=== PATIENT | male | born 1990 | race Caucasian/White ===

== ENCOUNTER 2018-06-10 07:16 | Emergency (ER) | payer SELFPAY ==
[~2018-06-10] VITALS: Ht 170.2 cm; Wt 61.2 kg
[~2018-06-10 07:16] MED LIST: DOXY100C2 PO; OXYB5TAB7 PO; OXYC5TAB95 PO; PHEN-318 PO
[2018-06-10] MEDS ORDERED: IV NORMAL SALINE 1000ML BAG 1,000 ML IV SCH (07:50)
[2018-06-10] MEDS ORDERED: KETOROLAC 30 MG/ML VIAL. IV ONE (08:00)
[2018-06-10] MEDS ORDERED: ONDANSETRON PF 4 MG/2 ML VIAL. IV ONE (08:00)
[2018-06-10 08:01] LABS: BILIRUBIN,URINE NEGATIVE (NEG); CLARITY,URINE CLEAR; COLOR,URINE YELLOW; NITRITE,URINE NEGATIVE (NEG); PH,URINE 6.5; PROTEIN,URINE NEGATIVE (NEG-TRACE); UROBILINOGEN,URINE 0.2 mg/dL (0.2 mg/dL)
--- NOTE | 2018-06-10 08:03 | PHYS DOC ---
Past Medical History Past Medical History: Kidney Stone Past Surgical History: Other Additional Past Surgical Histo: kidney stent placed, R chest skin graft Alcohol Use: Rarely Drug Use: Marijuana Adult General Chief Complaint Chief Complaint: FLANK PAIN HPI HPI Patient is a 28-year-old male with a past history of renal stones, who presents to the emergency department for evaluation of left flank pain, which began at 6: 45 AM this morning. He states the pain is an achy pain in his left flank which radiates towards his left groin and his left testicle, exactly the same as his prior kidney stones. He was here a month ago, and had a ureteropelvic junction stone, with stent placed, and his stone lasered. Notes from his recent hospitalization as well as a surgical procedure in order been reviewed. The patient states he removed the stent, upon the urologist instructions, about a week later. He states he has had some vomiting this morning since the pain began. He has had some blood clots in his urine, but has not had any fevers or chills. There are no alleviating, or exacerbating factors to his symptoms otherwise. Review of Systems Review of Systems Constitutional: Denies fever or chills [] Eyes: Denies change in visual acuity, redness, or eye pain [] HENT: Denies nasal congestion or sore throat [] Respiratory: Denies cough or shortness of breath [] Cardiovascular: The patient denies any shortness of breath, chest pain, palpitations, or orthopnea [] GI: Denies abdominal pain bloody stools or diarrhea [] : Denies dysuria or frequency. Reports hematuria and left flank pain.[] Musculoskeletal: Denies back pain or joint pain [] Integument: Denies rash or skin lesions [] Neurologic: Denies headache, focal weakness or sensory changes [] Endocrine: Denies polyuria or polydipsia [] All other systems were reviewed and found to be within normal limits, except as documented in this note. Current Medications Current Medications Current Medications Medications (Trade) Dose Ordered Sig/Vannesa Start Time Stop Time Status Last Admin Dose Admin Ketorolac Tromethamine (Toradol 30mg Vial) 30 mg 1X ONCE 06/10/18 08:00 06/10/18 08:25 DC 06/10/18 08:31 30 MG Morphine Sulfate (Morphine Sulfate) 4 mg PRN Q15MIN PRN 06/10/18 08:00 06/11/18 07:59 06/10/18 09:10 4 MG Ondansetron HCl (Zofran) 4 mg 1X ONCE 06/10/18 08:00 06/10/18 08:03 DC 06/10/18 08:32 4 MG Sodium Chloride 1,000 ml @ 1,000 mls/hr Q1H 06/10/18 07:50 06/10/18 08:49 DC 06/10/18 08:32 1,000 MLS/HR Allergies Allergies Allergies Coded Allergies Type Severity Reaction Last Updated Verified cyclobenzaprine Allergy Severe Anaphylaxis 05/06/18 Yes naproxen Allergy Severe Anaphylaxis 05/06/18 Yes tramadol Allergy Severe Anaphylaxis 05/06/18 Yes Physical Exam Physical Exam PHYSICAL EXAM: CONSTITUTIONAL: Well developed, well nourished HEAD: normocephalic, atraumatic EENT: PERRL, EOMI. Conjunctivae normal color, sclerae non-icteric; moist mucous membranes. NECK: Supple, non-tender; no meningismus. LUNGS: Lungs CTA, breathing even and unlabored. Normal air movement. HEART: Regular rate and rhythm, no murmur CHEST: No deformity; non-tender ABDOMEN: The abdomen is soft, and non-tender, no masses or bruits. There is no reproducible flank tenderness to palpation on abdominal palpation or evaluation. EXTREM: Normal ROM; no deformity, no calf tenderness. Normal pulses palpable in all extremities. There is no pedal edema. SKIN: No rash; no diaphoresis NEURO: Alert; normal speech and cognition; CN's grossly intact; strength grossly intact without focal deficit. BACK: There is mild left-sided CVA tenderness to palpation. There is no vertebral tenderness to palpation to the thoracic or lumbar spine. GENITOURINARY: Normal external genitalia. There is no testicular tenderness to palpation or inguinal masses. Current Patient Data Vital Signs Vital Signs Date Time Temp Pulse Resp B/P (MAP) Pulse Ox O2 Delivery O2 Flow Rate FiO2 06/10/18 09:10 18 99 Room Air 06/10/18 08:30 65 116/73 (87) 06/10/18 07:55 98.4 98.4 Lab Values Laboratory Tests Test 06/10/18 07:45 06/10/18 08:10 Urine Collection Type Unknown Urine Color Yellow Urine Clarity Clear Urine pH 6.5 Urine Specific [place] <=1.005 Urine Protein Negative mg/dL (NEG-TRACE) Urine Glucose (UA) Negative mg/dL (NEG) Urine Ketones (Stick) Negative mg/dL (NEG) Urine Blood Negative (NEG) Urine Nitrite Negative (NEG) Urine Bilirubin Negative (NEG) Urine Urobilinogen Dipstick 0.2 mg/dL (0.2 mg/dL) Urine Leukocyte Esterase Negative (NEG) Urine RBC 0 /HPF (0-2) Urine WBC 0 /HPF (0-4) Urine Bacteria 0 /HPF (0-FEW) White Blood Count 11.3 x10^3/uL (4.0-11.0) H Red Blood Count 4.46 x10^6/uL (4.30-5.70) Hemoglobin 14.3 g/dL (13.0-17.5) Hematocrit 41.8 % (39.0-53.0) Mean Corpuscular Volume 94 fL (79-100) Mean Corpuscular Hemoglobin 32 pg (25-35) Mean Corpuscular Hemoglobin Concent 34 g/dL (31-37) Red Cell Distribution Width 13.8 % (11.5-14.5) Platelet Count 239 x10^3/uL (140-400) Neutrophils (%) (Auto) 69 % (31-73) Lymphocytes (%) (Auto) 21 % (24-48) L Monocytes (%) (Auto) 6 % (0-9) Eosinophils (%) (Auto) 2 % (0-3) Basophils (%) (Auto) 1 % (0-3) Neutrophils # (Auto) 7.8 x10^3uL (1.8-7.7) H Lymphocytes # (Auto) 2.4 x10^3/uL (1.0-4.8) Monocytes # (Auto) 0.7 x10^3/uL (0.0-1.1) Eosinophils # (Auto) 0.3 x10^3/uL (0.0-0.7) Basophils # (Auto) 0.1 x10^3/uL (0.0-0.2) Sodium Level 144 mmol/L (136-145) Potassium Level 4.1 mmol/L (3.5-5.1) Chloride Level 112 mmol/L (98-107) H Carbon Dioxide Level 26 mmol/L (21-32) Anion Gap 6 (6-14) Blood Urea Nitrogen 8 mg/dL (8-26) Creatinine 1.0 mg/dL (0.7-1.3) Estimated GFR (Cockcroft-Gault) 90.3 BUN/Creatinine Ratio 8 (6-20) Glucose Level 83 mg/dL (70-99) Calcium Level 8.8 mg/dL (8.5-10.1) Total Bilirubin 0.2 mg/dL (0.2-1.0) Aspartate Amino Transferase (AST) 17 U/L (15-37) Alanine Aminotransferase (ALT) 35 U/L (16-63) Alkaline Phosphatase 96 U/L (46-116) Total Protein 7.0 g/dL (6.4-8.2) Albumin 4.0 g/dL (3.4-5.0) Albumin/Globulin Ratio 1.3 (1.0-1.7) Lipase 272 U/L (73-393) Laboratory Tests 06/10/18 08:10 Laboratory Tests 06/10/18 08:10 EKG EKG [] Radiology/Procedures Radiology/Procedures [PROCEDURE: CT ABDOMEN PELVIS WO CONTRAST CT scan of the abdomen and pelvis without contrast 06/10/2018 CLINICAL HISTORY: Left flank pain. TECHNIQUE: Unenhanced, contiguous, 2 mm axial sections were obtained through the abdomen and pelvis. One or more of the following individualized dose reduction techniques were utilized for this study: 1. Automated exposure control. 2. Adjustment of the mA and/or kV according to patient size. 3. Use of iterative reconstruction technique. FINDINGS: Comparison study is dated 05/06/2018. Images through the lung bases are within normal limits. The liver, spleen, pancreas, and adrenal glands are within normal limits. No renal or ureteral calculus is seen. There is no evidence of obstruction of either collecting system. The left UPJ calculus seen on the previous examination has been passed. The abdominal aorta tapers normally. The gallbladder is contracted. No free fluid or free air is seen within the abdomen. There is no evidence of bowel obstruction. Air and stool is seen throughout the colon. The appendix is well-visualized and is within normal limits. Images through the pelvis demonstrate the urinary bladder distended with urine. No free fluid is seen. The osseous structures are unchanged. IMPRESSION: No acute abnormality is seen.] Course & Med Decision Making Course & Med Decision Making Pertinent Labs and Imaging studies reviewed. (See chart for details) [9:10 AM: The patient's condition remained stable. I discussed test results with the patient, the unclear etiology of his symptoms, the need for close outpatient follow-up with a primary care provider and urologist, and return precautions.] Dragon Disclaimer Dragon Disclaimer This electronic medical record was generated, in whole or in part, using a voice recognition dictation system. Departure Departure Impression: Primary Impression: Flank pain Disposition: HOME, SELF-CARE Condition: STABLE Referrals: ARMEN GÓMEZ MD Patient Instructions: Back Pain, Adult, Flank Pain Additional Instructions: Ibuprofen 400-600 mg every 6 hours may help improve your symptoms. Applying a heating pad to the affected area may help improve your symptoms. The prescribed medications may cause drowsiness-use caution while taking. Scripts Tizanidine Hcl (ZANAFLEX) 4 Mg Capsule 1 CAP PO TID, #20 CAP Prov: LEONIDES HENDRICKSON MD 06/10/18 Diclofenac Sodium (DICLOFENAC SODIUM) 50 Mg Tablet. 1 TAB PO BID, #20 TAB 0 Refills Prov: LEONIDES HENDRICKSON MD 06/10/18 LEONIDES HENDRICKSON MD Jun 10, 2018 08:03
[2018-06-10 08:16] LABS: BASO # 0.1 x10^3/uL (0.0-0.2); BASO % 1 % (0-3); EOS # 0.3 x10^3/uL (0.0-0.7); EOS % 2 % (0-3); HEMATOCRIT 41.8 % (39.0-53.0); HEMOGLOBIN 14.3 g/dL (13.0-17.5); LYMPH # 2.4 x10^3/uL (1.0-4.8); LYMPH % 21 % (24-48); MEAN CORPUSCULAR HEMOGLOBIN 32 pg (25-35); MEAN CORPUSCULAR HGB CONC 34 g/dL (31-37); MEAN CORPUSCULAR VOLUME 94 fL (79-100); MONO # 0.7 x10^3/uL (0.0-1.1); MONO % 6 % (0-9); NEUT # 7.8 x10^3uL (1.8-7.7); NEUT % 69 % (31-73); PLATELET COUNT 239 x10^3/uL (140-400); RED BLOOD COUNT 4.46 x10^6/uL (4.30-5.70); RED CELL DISTRIBUTION WIDTH 13.8 % (11.5-14.5); WHITE BLOOD COUNT 11.3 x10^3/uL (4.0-11.0)
[2018-06-10 08:19] LABS: BACTERIA,URINE 0 /HPF (0-FEW); RBC,URINE 0 /HPF (0-2); WBC,URINE 0 /HPF (0-4)
[2018-06-10] MEDS: MORPHINE SULFATE 4 MG/ML VIAL. IV/SQ PRN ×2 (08:31→09:10)
[2018-06-10 08:33] LABS: GFR 90.3
[2018-06-10 08:39] LABS: ALBUMIN/GLOBULIN RATIO 1.3 (1.0-1.7); TOTAL BILIRUBIN 0.2 mg/dL (0.2-1.0)
[2018-06-10 08:43] LABS: CALCIUM 8.8 mg/dL (8.5-10.1); POTASSIUM 4.1 mmol/L (3.5-5.1)
--- NOTE | 2018-06-10 09:00 | RAD ---
CT scan of the abdomen and pelvis without contrast 06/10/2018 CLINICAL HISTORY: Left flank pain. TECHNIQUE: Unenhanced, contiguous, 2 mm axial sections were obtained through the abdomen and pelvis. One or more of the following individualized dose reduction techniques were utilized for this study: 1. Automated exposure control. 2. Adjustment of the mA and/or kV according to patient size. 3. Use of iterative reconstruction technique. FINDINGS: Comparison study is dated 05/06/2018. Images through the lung bases are within normal limits. The liver, spleen, pancreas, and adrenal glands are within normal limits. No renal or ureteral calculus is seen. There is no evidence of obstruction of either collecting system. The left UPJ calculus seen on the previous examination has been passed. The abdominal aorta tapers normally. The gallbladder is contracted. No free fluid or free air is seen within the abdomen. There is no evidence of bowel obstruction. Air and stool is seen throughout the colon. The appendix is well-visualized and is within normal limits. Images through the pelvis demonstrate the urinary bladder distended with urine. No free fluid is seen. The osseous structures are unchanged. IMPRESSION: No acute abnormality is seen. Electronically signed by: Arben Avila MD (06/10/2018 8:56 AM) [id number]
[2018-06-10 09:15] VITALS: BP 107/80
[2018-06-10] MEDS ORDERED: DICL50TA4 PO (09:16)
[2018-06-10] MEDS ORDERED: TIZA4CAP3 PO (09:16)
== END 2018-06-10 09:35 | disposition home or self-care (01) ==
LOC: ER 07:16
DX: R10.9 Unspecified abdominal pain (principal); R31.9 Hematuria, unspecified; Z87.442 Personal history of urinary calculi; Z88.5 Allergy status to narcotic agent; Z88.8 Allergy status to other drugs, medicaments and biological substances
CPT/HCPCS: 36415; 74176; 80053; 81001; 83690; 85025; 96374; 96375; 96376; 99285; J1885; J2270; J2405; J7030

== ENCOUNTER 2018-08-11 11:36 | Emergency (ER) | payer SELFPAY ==
[~2018-08-11] VITALS: Ht 170.2 cm; Wt 61.2 kg
[~2018-08-11 11:36] MED LIST changes: +DICL50TA4 PO; +OXYC5TAB4 PO; -OXYC5TAB95 PO; +TIZA4CAP3 PO
[2018-08-11 11:53] VITALS: BP 91/69
[2018-08-11] MEDS ORDERED: HYDR-3164 PO (12:38)
[2018-08-11] MEDS ORDERED: SULF1TAB24 PO (12:38)
--- NOTE | 2018-08-11 12:38 | PHYS DOC ---
Past Medical History Past Medical History: No Pertinent History, Kidney Stone Past Surgical History: Other Additional Past Surgical Histo: kidney stent placed, R chest skin graft Alcohol Use: Rarely Drug Use: Marijuana Adult General Chief Complaint Chief Complaint: ABSCESS HPI HPI Patient is a 28 year old male who presents with an abscess to his lower abdomen that has been increasing in size over the past 3-4 days. He states that he is picked at it but is unable to get it to open and drain. He states that it is now very painful. He denies fever, nausea or vomiting. Review of Systems Review of Systems Constitutional: Denies fever or chills [] Eyes: Denies change in visual acuity, redness, or eye pain [] HENT: Denies nasal congestion or sore throat [] Respiratory: Denies cough or shortness of breath [] Cardiovascular: No additional information not addressed in HPI [] GI: Denies abdominal pain, nausea, vomiting, bloody stools or diarrhea [] : Denies dysuria or hematuria [] Musculoskeletal: Denies back pain or joint pain [] Integument: See history of present illness Neurologic: Denies headache, focal weakness or sensory changes [] Endocrine: Denies polyuria or polydipsia [] All other systems were reviewed and found to be within normal limits, except as documented in this note. Current Medications Current Medications Current Medications Medications (Trade) Dose Ordered Sig/Vannesa Start Time Stop Time Status Last Admin Dose Admin Acetaminophen/ Hydrocodone Bitart (Lortab 5/325) 2 tab 1X ONCE 08/11/18 12:45 08/11/18 12:46 DC 08/11/18 12:56 2 TAB Allergies Allergies Allergies Coded Allergies Type Severity Reaction Last Updated Verified cyclobenzaprine Allergy Severe Anaphylaxis 05/06/18 Yes naproxen Allergy Severe Anaphylaxis 05/06/18 Yes tramadol Allergy Severe Anaphylaxis 08/11/18 Yes Physical Exam Physical Exam Constitutional: Well developed, well nourished, no acute distress, non-toxic appearance. [] HENT: Normocephalic, atraumatic, bilateral external ears normal, oropharynx moist, no oral exudates, nose normal. [] Eyes: PERRLA, EOMI, conjunctiva normal, no discharge. [] Neck: Normal range of motion, no tenderness, supple, no stridor. [] Cardiovascular:Heart rate regular rhythm, no murmur [] Lungs & Thorax: Bilateral breath sounds clear to auscultation [] Abdomen: Bowel sounds normal, soft, no tenderness, no masses, no pulsatile masses. [] Skin: 3 cm in diameter abscess to the lower right abdomen that has scabbing noted to the surface with induration and fluctuance noted Back: No tenderness, no CVA tenderness. [] Extremities: No tenderness, no cyanosis, no clubbing, ROM intact, no edema. [] Neurologic: Alert and oriented X 3, normal motor function, normal sensory function, no focal deficits noted. [] Psychologic: Affect normal, judgement normal, mood normal. [] Current Patient Data Vital Signs Vital Signs Date Time Temp Pulse Resp B/P (MAP) Pulse Ox O2 Delivery O2 Flow Rate FiO2 08/11/18 12:56 16 95 Room Air 08/11/18 11:53 97.4 90 91/69 (76) 97.4 EKG EKG [] Radiology/Procedures Radiology/Procedures []Abscess Incision and Drainage with irrigation by me: Location: Lower abdomen Technique: The abscess was opened with an 11 blade and thick purulent drainage was released. Approximately 7 mls of drainage was produced Packing: None Complications: Neurovascularly intact post procedure 48 hour wound check. Scar minimization instructions given. Course & Med Decision Making Course & Med Decision Making Pertinent Labs and Imaging studies reviewed. (See chart for details) [] Dragon Disclaimer Dragon Disclaimer This electronic medical record was generated, in whole or in part, using a voice recognition dictation system. Departure Departure Impression: Primary Impression: Abscess Disposition: 01 HOME, SELF-CARE Condition: STABLE Referrals: NO PCP (PCP) Patient Instructions: Abscess Additional Instructions: Take medications as directed. Do not drive or operate heavy machinery taking pain medication. Follow-up with your PCP in 4 days for recheck if not improving or return to the emergency department if worsening. Scripts Hydrocodone/Apap 5-325 (NORCO 5-325 TABLET) 1 Each Tablet 1 TAB PO PRN Q6HRS PRN for PAIN, #10 TAB 0 Refills Prov: SERGIO BOLTON APRN 08/11/18 Sulfamethoxazole/Trimethoprim (BACTRIM DS TABLET) 1 Each Tablet 1 TAB PO BID for abscess, #20 TAB Prov: SERGIO BOLTON APRN 08/11/18 Attending Signature Attending Signature I have reviewed the PA/ROASTER OPERATOR's note and plan of care. I was available for consultation as needed during the patient's visit in the emergency department. I agree with the clinical impression, plan, and disposition. SERGIO BOLTON APRN Aug 11, 2018 12:38 ADAMARIS DOMÍNGUEZ DO Aug 12, 2018 13:54
[2018-08-11] MEDS ORDERED: HYDROcodone/APAP 5/325MG 1 TAB TABLET PO ONE (12:45)
== END 2018-08-11 13:00 | disposition home or self-care (01) ==
LOC: ER 11:36
DX: L02.211 Cutaneous abscess of abdominal wall (principal); Z87.442 Personal history of urinary calculi; Z88.5 Allergy status to narcotic agent; Z88.8 Allergy status to other drugs, medicaments and biological substances
CPT/HCPCS: 10060; 99283

== ENCOUNTER 2019-08-22 22:12 | Emergency (ER) | payer MEDICAID ==
[~2019-08-22] VITALS: Ht 167.6 cm; Wt 65.8 kg
[~2019-08-22 22:12] MED LIST changes: +HYDR-3164 PO; +OXYB5TAB10 PO; -OXYB5TAB7 PO; +SULF1TAB24 PO
--- NOTE | 2019-08-22 22:47 | PHYS DOC ---
Past Medical History Past Medical History: No Pertinent History, Kidney Stone Past Surgical History: Other Additional Past Surgical Histo: kidney stent placed, R chest skin graft Alcohol Use: Rarely Drug Use: Marijuana Adult General Chief Complaint Chief Complaint: HEAD INJURY/TRAUMA HPI HPI Patient is a 29-year-old otherwise healthy male who fell hit his head on the ice a couple days ago. He's had severe headaches dizziness and lethargy and difficulty walking since that time. He states now his headache is so severe that he has some nausea. He denies any neck pain or lateralizing neurologic weakness.[] Review of Systems Review of Systems Constitutional: Denies fever or chills [] Eyes: Denies change in visual acuity, redness, or eye pain [] HENT: Denies nasal congestion or sore throat [] Respiratory: Denies cough or shortness of breath [] Cardiovascular: No additional information not addressed in HPI [] GI: Denies abdominal pain, nausea, vomiting, bloody stools or diarrhea [] : Denies dysuria or hematuria [] Musculoskeletal: Denies back pain or joint pain [] Integument: Denies rash or skin lesions [] Neurologic: Per history of present illness[] Endocrine: Denies polyuria or polydipsia [] All other systems were reviewed and found to be within normal limits, except as documented in this note. Current Medications Current Medications Current Medications Medications (Trade) Dose Ordered Sig/Vannesa Start Time Stop Time Status Last Admin Dose Admin Diphenhydramine HCl (Benadryl) 25 mg 1X ONCE 08/22/19 23:00 08/22/19 23:01 Ketorolac Tromethamine (Toradol 30mg Vial) 30 mg 1X ONCE 08/22/19 23:00 08/22/19 23:01 Metoclopramide HCl (Reglan Vial) 10 mg 1X ONCE 08/22/19 23:00 08/22/19 23:01 Sodium Chloride 1,000 ml @ 1,000 mls/hr 1X ONCE 08/22/19 23:00 08/22/19 23:59 Allergies Allergies Allergies Coded Allergies Type Severity Reaction Last Updated Verified cyclobenzaprine Allergy Severe Anaphylaxis 05/06/18 Yes naproxen Allergy Severe Anaphylaxis 05/06/18 Yes tramadol Allergy Severe Anaphylaxis 08/11/18 Yes Physical Exam Physical Exam Constitutional: Well developed, well nourished, mild to moderate distress, non- toxic appearance. [] HENT: Right forehead with small hematoma tender to palp no obvious crepitus. [] Eyes: PERRLA, EOMI, conjunctiva normal, no discharge. [] Neck: Normal range of motion, no tenderness, supple, no stridor. [] Cardiovascular:Heart rate regular rhythm, no murmur [] Lungs & Thorax: Bilateral breath sounds clear to auscultation [] Abdomen: Bowel sounds normal, soft, no tenderness, no masses, no pulsatile masses. [] Skin: Warm, dry, no erythema, no rash. [] Back: No tenderness, no CVA tenderness. [] Extremities: No tenderness, no cyanosis, no clubbing, ROM intact, no edema. [] Neurologic: Alert and oriented X 3, normal motor function, normal sensory function, no focal deficits noted. [] Psychologic: Anxious[] EKG EKG [] Radiology/Procedures Radiology/Procedures []REASON: head trauma, LOC PROCEDURE: CT HEAD WO CONTRAST CT head without contrast 08/22/2019. Reason for exam: Headache. Head injury. Noncontrast images were performed. Exposure: One or more of the following individualized dose reduction techniques were utilized for this examination: 1. Automated exposure control 2. Adjustment of the mA and/or kV according to patient size 3. Use of iterative reconstruction technique. FINDINGS: There is no apparent intracranial hemorrhage or abnormal extra-axial fluid collection. No area of abnormal density is seen in the brain. The ventricles and basilar cisterns are normally positioned. Bone windows show no apparent fracture of the skull or abnormal sinus or mastoid opacification. IMPRESSION: No apparent acute abnormality. Course & Med Decision Making Course & Med Decision Making Pertinent Labs and Imaging studies reviewed. (See chart for details) [ED course: Evaluation reveals a 29-year-old male with a head injury 2 days ago who had some severe headache dizziness secondary to the fall. CT scan was performed because there was some question of a brief loss of consciousness and then was severe progressive symptoms I felt it was warranted. Patient was given IV fluids Toradol Reglan and Benadryl with complete resolution of his symptoms.] Dragon Disclaimer Dragon Disclaimer This electronic medical record was generated, in whole or in part, using a voice recognition dictation system. Departure Departure Impression: Primary Impression: Closed head injury Additional Impression: Migraine Disposition: 01 HOME, SELF-CARE Condition: IMPROVED Referrals: NO PCP (PCP) Patient Instructions: Head Injury, Adult, Migraine Headache Additional Instructions: Return to the emergency department with any new or concerning symptoms Scripts Naproxen (NAPROXEN) 500 Mg Tablet 1 TAB PO BID PRN for PAIN, #30 TAB 1 Refill Prov: JHONY MUSA DO 08/22/19 Problem Qualifiers Primary Impression: Closed head injury Encounter type: initial encounter Qualified Codes: S09.90XA - Unspecified injury of head, initial encounter Additional Impression: Migraine Migraine type: without aura Status migrainosus presence: without status migrainosus Intractability: not intractable Qualified Codes: G43.009 - Migraine without aura, not intractable, without status migrainosus JHONY MUSA DO Aug 22, 2019 22:47
--- NOTE | 2019-08-22 22:56 | RAD ---
CT head without contrast 08/22/2019. Reason for exam: Headache. Head injury. Noncontrast images were performed. Exposure: One or more of the following individualized dose reduction techniques were utilized for this examination: 1. Automated exposure control 2. Adjustment of the mA and/or kV according to patient size 3. Use of iterative reconstruction technique. FINDINGS: There is no apparent intracranial hemorrhage or abnormal extra-axial fluid collection. No area of abnormal density is seen in the brain. The ventricles and basilar cisterns are normally positioned. Bone windows show no apparent fracture of the skull or abnormal sinus or mastoid opacification. IMPRESSION: No apparent acute abnormality. Electronically signed by: Sanjeev Pacheco Jr., MD (08/22/2019 10:53 PM) [id number]
[2019-08-22] MEDS: IV NORMAL SALINE 1000ML BAG 1,000 ML IV ONE (22:58)
[2019-08-22] MEDS: KETOROLAC 30 MG/ML VIAL. IV ONE (22:59)
[2019-08-22] MEDS: METOCLOPRAMIDE HCL 10 MG/2 ML VIAL. IV ONE (22:59)
[2019-08-22] MEDS: diphenhydrAMINE 50 MG/ML VIAL IVP ONE (22:59)
[2019-08-22] MEDS ORDERED: NAPR-514 PO (22:59)
[2019-08-22 23:53] VITALS: BP 117/63
== END 2019-08-23 00:09 | disposition home or self-care (01) ==
LOC: ER 22:12
DX: S00.83XA Contusion of other part of head, initial encounter (principal); G43.909 Migraine, unspecified, not intractable, without status migrainosus; R42 Dizziness and giddiness; Z88.5 Allergy status to narcotic agent; Z88.6 Allergy status to analgesic agent; Z88.8 Allergy status to other drugs, medicaments and biological substances; W18.09XA Striking against other object with subsequent fall, initial encounter; Y93.89 Activity, other specified; Y92.89 Other specified places as the place of occurrence of the external cause; Y99.8 Other external cause status
CPT/HCPCS: 70450; 96361; 96374; 96375; 99284; J1200; J1885; J2765; J7030

== ENCOUNTER 2019-12-07 16:28 | Emergency (ER) | payer MEDICAID ==
[~2019-12-07 16:28] MED LIST changes: +NAPR-514 PO
== END 2019-12-07 16:56 | disposition left against medical advice (07) ==
LOC: ER 16:28
DX: T65.91XA Toxic effect of unspecified substance, accidental (unintentional), initial encounter (principal); Y92.89 Other specified places as the place of occurrence of the external cause

== ENCOUNTER 2020-05-23 16:58 | Emergency (ER) | payer MEDICAID ==
[~2020-05-23] VITALS: Ht 170.2 cm; Wt 71.3 kg
[2020-05-23] MEDS ORDERED: fentaNYL PF VIAL 100 MCG/2 ML VIAL IVP ONE (17:45)
--- NOTE | 2020-05-23 18:24 | PHYS DOC ---
Past Medical History Past Medical History: Kidney Stone Past Surgical History: Other Additional Past Surgical Histo: kidney stent placed, R chest skin graft, dental surgery Smoking Status: Current Every Day Smoker Additional Information: 4-5 cigarettes daily Alcohol Use: None Drug Use: Marijuana General Adult EDM: Chief Complaint: ANKLE PROBLEM HPI: HPI: Patient is a 30 year old male who presents with was working on his sister's car today when the car morris fell out from her knee the car and the car hit his left ankle. There is 3+ swelling and bruising to the whole malleus itself. More so on the malleus. Patient rates his pain a 10 out of 10 and states it sharp and throbbing. Skin is pink warm and dry. Pedal pulse strong present. Cap refill less than 2 seconds. Patient can wiggle toes but he cannot rotate at the ankle. History of smoking, right chest skin graft, dental surgery, kidney stone with stent. Review of Systems: Review of Systems: Constitutional: Denies fever or chills. [] Eyes: Denies change in visual acuity. [] HENT: Denies nasal congestion or sore throat. [] Respiratory: Denies cough or shortness of breath. [] Cardiovascular: Denies chest pain. Left ankle 3+ edema. [] GI: Denies abdominal pain, nausea, vomiting, bloody stools or diarrhea. [] : Denies dysuria. [] Musculoskeletal: Denies back pain. Left ankle joint pain. [] Integument: Denies rash. Ankle swelling and bruising. [] Neurologic: Denies headache, focal weakness or sensory changes. [] Endocrine: Denies polyuria or polydipsia. [] Lymphatic: Denies swollen glands. [] Psychiatric: Denies depression or anxiety. [] Heart Score: Risk Factors: Risk Factors: DM, Current or recent (<one month) smoker, HTN, HLP, family history of CAD, obesity. Risk Scores: Score 0 - 3: 2.5% MACE over next 6 weeks - Discharge Home Score 4 - 6: 20.3% MACE over next 6 weeks - Admit for Clinical Observation Score 7 - 10: 72.7% MACE over next 6 weeks - Early Invasive Strategies Current Medications: Current Medications Medications (Trade) Dose Ordered Sig/Vannesa Start Time Stop Time Status Last Admin Dose Admin Fentanyl Citrate (Fentanyl 2ml Vial) 50 mcg 1X ONCE 05/23/20 17:45 05/23/20 17:46 DC 05/23/20 17:48 50 MCG Morphine Sulfate (Morphine Sulfate) 4 mg 1X ONCE 05/23/20 18:30 05/23/20 18:31 Allergies: Allergies: Allergies Coded Allergies Type Severity Reaction Last Updated Verified cyclobenzaprine Allergy Severe Anaphylaxis 05/23/20 Yes naproxen Allergy Severe Anaphylaxis 05/23/20 Yes tramadol Allergy Severe Anaphylaxis 05/23/20 Yes Physical Exam: PE: Constitutional: Well developed, well nourished, no acute distress, non-toxic appearance. [] HENT: Normocephalic, atraumatic, bilateral external ears normal, oropharynx moist, no oral exudates, nose normal. [] Eyes: PERRLA, EOMI, conjunctiva normal, no discharge. [] Neck: Normal range of motion, no tenderness, supple, no stridor. [] Cardiovascular:Heart rate regular rhythm, no murmur [] Lungs & Thorax: Bilateral breath sounds clear to auscultation [] Abdomen: Bowel sounds normal, soft, no tenderness, no masses, no pulsatile masses. [] Skin: Warm, dry, no erythema, no rash. Left ankle bruising. [] Back: No tenderness, no CVA tenderness. [] Extremities: Left medial, dorsal, lateral tenderness, no cyanosis, no clubbing, left ankle ROM not intact, 3+ edema. [] Neurologic: Alert and oriented X 3, normal motor function, normal sensory function, no focal deficits noted. [] Psychologic: Affect normal, judgement normal, mood normal. [] Current Patient Data: Vital Signs: Vital Signs Date Time Temp Pulse Resp B/P (MAP) Pulse Ox O2 Delivery O2 Flow Rate FiO2 05/23/20 17:48 98 Room Air 05/23/20 17:27 98.7 117 20 120/66 (84) 98.0 98.7 EKG: EK and read by Dr Taylor sinus rhythm and no STEMI. Radiology/Procedures: Radiology/Procedures: [] Impression: [facility] [address] [place] [address] IMAGING REPORT Signed PATIENT: CALEB JAMES ACCOUNT: [id number] : 1990 LOCATION: ER AGE: 30 SEX: M EXAM STATUS: REG ER ORD. PHYSICIAN: NON,STAFF REASON: Car fell off morris onto ankle/foot PROCEDURE: ANKLE LEFT 3V Left ankle x-rays 3 views HISTORY: Trauma, left ankle and foot pain. FINDINGS: Acute traumatic comminuted fracture of the calcaneus disrupting the tuberosity with cortical offset of 2 mm at the region of the Achilles tendon insertion, fracture extends into the talocalcaneal joint involving the facets of the calcaneus. No talus fracture or osteochondral lesion evident. The tibial plafond and the malleoli are intact. There is marked soft tissue swelling at the medial ankle and mild diffuse ankle soft tissue edema. IMPRESSION: Acute traumatic fracture of the calcaneus as described above. Electronically signed by: Esha Zuniga MD (05/23/2020 6:28 PM) [id number] DICTATED and SIGNED BY: ESHA ZUNIGA MD DATE: 05/23/20 182 Course & Med Decision Making: Course & Med Decision Making Pertinent Labs and Imaging studies reviewed. (See chart for details) See HPI. Ambulatory with a steady gait. Speaks in full complete sentences. Alert and oriented x4. Cannot put any pressure on the extremity. Patient is in severe pain. Pedal pulses strong and present. Have called and spoken to Dr. Churchill who states that this patient really needs to go to . I will call for transfer. Patient will be placed in a stirrup and posterior splint. Spoke with Dr. Harleen Tabares with and she accepted the patient for transfer. Patient will be transferred as soon as a bed is available. They state they are on high volume. Patient agrees to transfer. Splint assessment: Neurovascularly intact post splint replacement with good fit. Patient's extremity symptoms have stabilized well they have been evaluated in the department and are appropriate for outpatient follow-up. No evidence of compartment syndrome, neurologic injury, vascular injury, open joint, open fracture, tendon laceration, or foreign body. [] Dragon Disclaimer: Dragon Disclaimer: This electronic medical record was generated, in whole or in part, using a voice recognition dictation system. Departure Departure Impression: Primary Impression: Comminuted fracture Disposition: 05 TRANSFER OTHER ( ORTHOPEDIC) Condition: STABLE Referrals: NO PCP (PCP) Justicifation of Admission Dx: Justifications for Admission: Justification of Admission Dx: No (transfer to ) ANGIE LAZARO C [employer] May 23, 2020 18:24
[2020-05-23] MEDS ORDERED: MORPHINE SULFATE 4 MG/ML VIAL. IV ONE (18:30)
--- NOTE | 2020-05-23 18:31 | RAD ---
Left ankle x-rays 3 views HISTORY: Trauma, left ankle and foot pain. FINDINGS: Acute traumatic comminuted fracture of the calcaneus disrupting the tuberosity with cortical offset of 2 mm at the region of the Achilles tendon insertion, fracture extends into the talocalcaneal joint involving the facets of the calcaneus. No talus fracture or osteochondral lesion evident. The tibial plafond and the malleoli are intact. There is marked soft tissue swelling at the medial ankle and mild diffuse ankle soft tissue edema. IMPRESSION: Acute traumatic fracture of the calcaneus as described above. Electronically signed by: James Zuniga MD (05/23/2020 6:28 PM) [id number]
[2020-05-23] MEDS ORDERED: HYDROmorphone 2 MG/ML VIAL IVP ONE (19:30)
[2020-05-23 19:31] LABS: BASO # 0.1 x10^3/uL (0.0-0.2); BASO % 1 % (0-3); EOS # 0.1 x10^3/uL (0.0-0.7); EOS % 1 % (0-3); HEMATOCRIT 39.6 % (39.0-53.0); HEMOGLOBIN 13.8 g/dL (13.0-17.5); LYMPH # 2.7 x10^3/uL (1.0-4.8); LYMPH % 23 % (24-48); MEAN CORPUSCULAR HEMOGLOBIN 32 pg (25-35); MEAN CORPUSCULAR HGB CONC 35 g/dL (31-37); MEAN CORPUSCULAR VOLUME 92 fL (79-100); MONO # 1.2 x10^3/uL (0.0-1.1); MONO % 10 % (0-9); NEUT # 7.6 x10^3/uL (1.8-7.7); NEUT % 65 % (31-73); PLATELET COUNT 276 x10^3/uL (140-400); RED CELL DISTRIBUTION WIDTH 13.9 % (11.5-14.5); WHITE BLOOD COUNT 11.6 x10^3/uL (4.0-11.0)
[2020-05-23 19:40] LABS: CALCIUM 9.3 mg/dL (8.5-10.1); CREATININE 1.1 mg/dL (0.7-1.3); GFR 79.7; POTASSIUM 3.7 mmol/L (3.5-5.1)
[2020-05-23 19:41] LABS: PROTHROMBIN TIME PATIENT 13.9 SEC (11.7-14.0)
[2020-05-23 19:53] VITALS: BP 147/97
[2020-05-23 19:54] LABS: ALBUMIN/GLOBULIN RATIO 1.2 (1.0-1.7); TOTAL BILIRUBIN 0.7 mg/dL (0.2-1.0); TOTAL PROTEIN 7.4 g/dL (6.4-8.2)
--- NOTE | 2020-05-24 07:56 | EKG ---
[facility] [address] [place] [address] Test Date: 2020-05-23 Test Time: 19:28:48 Pat Name: CALEB JAMES Department: Room: Gender: M Floor Person: : 1990 Requested By: ANGIE LAZARO Order Number: [id number] Reading MD: Measurements Intervals [place] Rate: 86 P: 52 MO: 114 QRS: 62 QRSD: 78 T: 34 QT: 334 QTc: 402 Interpretive Statements SINUS RHYTHM OTHERWISE NORMAL ECG RI6.02 No previous ECG available for comparison
== END 2020-05-23 20:30 | disposition short-term general hospital (02) ==
LOC: ER 16:58
DX: S82.892A Other fracture of left lower leg, initial encounter for closed fracture (principal); R60.0 Localized edema; Z20.818 Contact with and (suspected) exposure to other bacterial communicable diseases; F12.90 Cannabis use, unspecified, uncomplicated; F17.210 Nicotine dependence, cigarettes, uncomplicated; Z87.442 Personal history of urinary calculi; Z98.890 Other specified postprocedural states; W18.39XA Other fall on same level, initial encounter; Y93.89 Activity, other specified; Y92.89 Other specified places as the place of occurrence of the external cause; Y99.8 Other external cause status
CPT/HCPCS: 29515; 36415; 73610; 80053; 85025; 85610; 87426; 93005; 96374; 96375; 99285; J1170; J2270; J3010; U0003